=== PATIENT | female | born 1990 | race Caucasian/White ===

== ENCOUNTER → 2018-10-31 00:40 | Observation (INO) ==
[2018-10-30 22:55] LABS: Bilirubin,Urine Negative (Negative); Blood,Urine Negative (Negative); Clarity,Urine Cloudy (Clear); Color,Urine Yellow (Yellow); Glucose,Urine (UA) Normal (Normal); Ketones,Urine Negative (Negative); Leukocyte Esterase,Urine Trace (Negative); Nitrite,Urine Negative (Negative); Protein,Urine Negative (Neg-Trace); Specific Gravity,Urine 1.018 (1.010-1.025); Urobilinogen,Urine Normal (Normal)
[2018-10-30 22:56] LABS: Bacteria,Urine Few per hpf (None-Few); Hyaline Casts,Urine None Seen per lpf (None-Few); RBC,Urine 0-3 per hpf (0-3); Squamous Epithelial Cell,Urine Many per lpf (None-Few); WBC,Urine 0-3 per hpf (0-3)
[2018-10-30 23:06] LABS: Amphetamine Screen,Urine Negative ng/mL (Cutoff=1000); Barbiturate Screen,Urine Negative ng/mL (Cutoff=200); Benzodiazepines Screen,Urine Negative ng/mL (Cutoff=200); Cannabinoid Screen,Urine Negative ng/mL (Cutoff = 50); Cocaine Screen,Urine Negative ng/mL (Cutoff= 300); Opiate Screen,Urine Negative ng/mL (Cutoff=300); Phencyclidine Screen,Urine Negative ng/mL (Cutoff=25)
--- NOTE | 2018-10-31 00:33 | Discharge Summary ---
Date of Encounter: 10/31/18 Time of Encounter: 00:38 - Discharge Diagnosis (1) 28 weeks gestation of Priority: Primary Status: Acute Comments: Admit to observation for complaint of abdominal pain. (2) Abdominal pain affecting Priority: Secondary Status: Acute Comments: Continuous /uterine monitoring Rare uterine activity noted. - Discharge Medications Prescriptions: No Action One Tablet 1 mg PO DAILY Hydrocodone/Acetaminophen [[place] 5-325 Tablet] 1 each PO Q6H PRN 3 Days #12 tablet PRN Reason: Moderate Pain Vitamin B-6 Home Medications: One Tablet 1 mg PO DAILY 09/20/18 [History] Hydrocodone/Acetaminophen [[place] 5-325 Tablet] 1 each PO Q6H PRN 3 Days #12 tablet 10/16/18 [Rx] Vitamin B-6 10/30/18 [History] Allergies/Adverse Reactions: Allergy/AdvReac Type Severity Reaction Status Date / Time Cyclobenzaprine Allergy Redness of Verified 10/30/18 22:43 [From Flexeril] Skin metoclopramide [From Reglan] Allergy Seizure Verified 10/30/18 22:43 Data Procedures and tests throughout hospitalization: Laboratory Tests 10/30/18 10/30/18 22:45 22:45 Urine Color Yellow Urine Clarity Cloudy A Urine pH 8.0 Ur Specific [place] 1.018 Urine Protein Negative Urine Glucose (UA) Normal Urine Ketones Negative Urine Blood Negative Urine Nitrite Negative Urine Bilirubin Negative Urine Urobilinogen Normal Ur Leukocyte Esterase Trace H Urine Microscopic RBC 0-3 Urine Microscopic WBC 0-3 Ur Squamous Epith Cells Many H Urine Bacteria Few Hyaline Casts None Seen Ur Culture Indicated? YES A Urine Opiates Screen Negative Ur Buprenorphine Scrn Negative Ur Barbiturates Screen Negative Ur Phencyclidine Scrn Negative Ur Amphetamines Screen Negative U Benzodiazepines Scrn Negative Urine Cocaine Screen Negative U Marijuana (THC) Screen Negative Ur Drug Screen Interp See Below Labs on day of discharge: Labs from last 24 hours 10/30/18 10/30/18 22:45 22:45 Urine Color Yellow Urine Clarity Cloudy A Urine pH 8.0 Ur Specific [place] 1.018 Urine Protein Negative Urine Glucose (UA) Normal Urine Ketones Negative Urine Blood Negative Urine Nitrite Negative Urine Bilirubin Negative Urine Urobilinogen Normal Ur Leukocyte Esterase Trace H Urine Microscopic RBC 0-3 Urine Microscopic WBC 0-3 Ur Squamous Epith Cells Many H Urine Bacteria Few Hyaline Casts None Seen Ur Culture Indicated? YES A Urine Opiates Screen Negative Ur Buprenorphine Scrn Negative Ur Barbiturates Screen Negative Ur Phencyclidine Scrn Negative Ur Amphetamines Screen Negative U Benzodiazepines Scrn Negative Urine Cocaine Screen Negative U Marijuana (THC) Screen Negative Ur Drug Screen Interp See Below Preliminary micro results at discharge 10/30/18 22:45 Urine Culture - Preliminary Urine,Clean Catch Culture is incubating. Date of admission: 10/30/18 22:33 Discharging clinician: Hilaria Fraser Anticipated date of discharge: 10/31/18 - Patient Status Disposition: Home, Self-Care Condition: Good Functional capacity at discharge: independent ambulation Overall status at discharge: patient is progressing back to baseline - Discharge Instructions - Diet and Activity Activity: resume usual activities as tolerated Diet: regular diet Hospital Course [employer]PER[employer] SUPERINTENDENT Hospital course: Patient arrived with complaint of lower abdominal/ suprapubic pain today. She does report positive movement and denies vaginal bleeding and fluid leakage. FHR is appropriate for gestational age and toco monitor reveals scant uterine activity. UA is WNL with mild dehydration noted. Patient is given labor precautions and is to follow up with her OB care provider for routine visit. Time Attestation: Total time spent providing and/or coordinating discharge services: Time Spent: Less than 30 minutes Exam - Constitutional General appearance IM: A&O X 3, no acute distress, answers questions appropriately - Respiratory Respiratory exam: Present: CTAB - Cardiovascular Cardiovascular exam IM: Present: RRR, +S1, +S2 - GI/Abdominal GI/Abdominal exam IM: normal bowel sounds - Rectal Rectal exam: deferred - External exam: normal external exam - Extremities Exam Extremities exam IM: Present: full ROM, normal capillary refill, normal inspection. Absent: calf tenderness - Neurological Exam Neurological exam: alert, normal gait, oriented X3 - VTE Reasons for not Prescribing Prophylaxis: Treatment not Indicated - Low risk for VTE
== END | disposition home or self-care (01) ==
LOC: 1NENULAB
PROVIDERS: ADMIT Registered Nurse; ATTEND Registered Nurse

== ENCOUNTER 2018-11-21 17:03 | Observation (INO) ==
[2018-11-21 17:39] LABS: Bilirubin,Urine Negative (Negative); Blood,Urine Negative (Negative); Clarity,Urine Clear (Clear); Color,Urine Yellow (Yellow); Glucose,Urine (UA) Normal (Normal); Ketones,Urine Negative (Negative); Leukocyte Esterase,Urine Negative (Negative); Nitrite,Urine Negative (Negative); Protein,Urine Negative (Neg-Trace); Urobilinogen,Urine Normal (Normal)
[2018-11-21 17:49] LABS: Amphetamine Screen,Urine Negative ng/mL (Cutoff=1000); Barbiturate Screen,Urine Negative ng/mL (Cutoff=200); Benzodiazepines Screen,Urine Negative ng/mL (Cutoff=200); Cannabinoid Screen,Urine Negative ng/mL (Cutoff = 50); Cocaine Screen,Urine Negative ng/mL (Cutoff= 300); Opiate Screen,Urine Negative ng/mL (Cutoff=300); Phencyclidine Screen,Urine Negative ng/mL (Cutoff=25)
== END 2018-11-21 19:15 | disposition home or self-care (01) ==
LOC: 1NENULAB
PROVIDERS: ADMIT Advanced Practice Midwife; ATTEND Advanced Practice Midwife

== ENCOUNTER → 2018-12-19 16:00 | Observation (INO) ==
[2018-12-19 14:12] LABS: Bilirubin,Urine Small (Negative); Blood,Urine Negative (Negative); Clarity,Urine Clear (Clear); Color,Urine Dark Yellow (Yellow); Glucose,Urine (UA) Normal (Normal); Ketones,Urine 40 mg/dL (Negative); Leukocyte Esterase,Urine Negative (Negative); Nitrite,Urine Negative (Negative); PH,Urine 6.5 pH Units (5.0-8.0); Protein,Urine Trace mg/dL (Neg-Trace); Specific Gravity,Urine 1.023 (1.010-1.025); Urobilinogen,Urine Normal (Normal)
[2018-12-19 14:19] LABS: Amphetamine Screen,Urine Negative ng/mL (Cutoff=1000); Barbiturate Screen,Urine Negative ng/mL (Cutoff=200); Benzodiazepines Screen,Urine Negative ng/mL (Cutoff=200); Cannabinoid Screen,Urine Negative ng/mL (Cutoff = 50); Cocaine Screen,Urine Negative ng/mL (Cutoff= 300); Opiate Screen,Urine Negative ng/mL (Cutoff=300); Phencyclidine Screen,Urine Negative ng/mL (Cutoff=25)
--- NOTE | 2018-12-19 16:21 | OB/GYN Progress Note ---
Date of Encounter: 12/19/18 Time of Encounter: 16:21 - Assessment and Plan (1) 35 weeks gestation of Current Visit: Yes Status: Acute (2) Uterine contractions during Current Visit: Yes Status: Acute Cervix closed, no change on serial cervical exams. 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 Discharged home with labor and when to return to triage precautions. Patient verbalizes arises understanding and in agreement with plan Subjective - Subjective Interval history: 35+3 weeks gestation presents to triage with complaints of contractions. Patient to she is been having contractions every 15 minutes all day, here for evaluation. Reports good movement, denies vaginal bleeding or leaking of fluid. Antepartum ROS: movement normal, contractions, no loss of fluid, no vaginal bleeding Objective - Exam FHR: auscultation normal FHR comments: Baseline 135 Abdomen: Present: soft, gravid Cervical dilation: Closed/thick/high/per RN - Labs Labs: Abnormal lab results Urine Ketones 40 mg/dL (Negative) H 12/19/18 13:50 Urine Bilirubin Small (Negative) H 12/19/18 13:50
== END | disposition home or self-care (01) ==
LOC: 1NENULAB
PROVIDERS: ADMIT Advanced Practice Midwife; ATTEND Advanced Practice Midwife

== ENCOUNTER → 2018-12-23 12:18 | Observation (INO) ==
[2018-12-23 11:04] LABS: Bilirubin,Urine Negative (Negative); Blood,Urine Negative (Negative); Clarity,Urine Cloudy (Clear); Color,Urine Yellow (Yellow); Glucose,Urine (UA) Normal (Normal); Ketones,Urine Negative (Negative); Leukocyte Esterase,Urine Negative (Negative); Nitrite,Urine Negative (Negative); PH,Urine 7.5 pH Units (5.0-8.0); Protein,Urine Negative (Neg-Trace); Specific Gravity,Urine 1.016 (1.010-1.025); Urobilinogen,Urine Normal (Normal)
[2018-12-23 11:08] LABS: Bacteria,Urine Few per hpf (None-Few); Hyaline Casts,Urine None Seen per lpf (None-Few); RBC,Urine 0-3 per hpf (0-3); Squamous Epithelial Cell,Urine Many per lpf (None-Few); WBC,Urine 0-3 per hpf (0-3)
[2018-12-23 11:16] LABS: Amphetamine Screen,Urine Negative ng/mL (Cutoff=1000); Barbiturate Screen,Urine Negative ng/mL (Cutoff=200); Benzodiazepines Screen,Urine Negative ng/mL (Cutoff=200); Cannabinoid Screen,Urine Negative ng/mL (Cutoff = 50); Cocaine Screen,Urine Negative ng/mL (Cutoff= 300); Opiate Screen,Urine Negative ng/mL (Cutoff=300); Phencyclidine Screen,Urine Negative ng/mL (Cutoff=25)
--- NOTE | 2019-01-02 09:57 | OB/GYN Progress Note ---
Date of Encounter: 12/23/18 Time of Encounter: 10:00 - Assessment and Plan (1) 36 weeks gestation of Status: Acute Follow up as scheduled Discharge home (2) uterine contractions in third trimester, antepartum Status: Acute Monitored with no cervical change UA negative Fern - Subjective - Subjective Interval history: Pt presents with c/o uterine cramping and concern for LOF. Antepartum ROS: new complaints, loss of fluid, contractions Objective - Exam FHR: category 1 Auscultation: bilateral: normal Abdomen: Present: normal appearance, soft, gravid Uterus: Present: normal, firm Cervical dilation: 0 Cervix effacement: 50 station: -3 - Labs Labs: Abnormal lab results Urine Clarity Cloudy (Clear) A 12/23/18 09:35 Ur Squamous Epith Cells Many per lpf (None-Few) H 12/23/18 09:35 Ur Culture Indicated? YES (NO) A 12/23/18 09:35
== END | disposition home or self-care (01) ==
LOC: 1NENULAB
PROVIDERS: ADMIT Advanced Practice Midwife; ATTEND Advanced Practice Midwife

== ENCOUNTER → 2018-12-27 04:15 | Observation (INO) ==
--- NOTE | 2018-12-27 03:34 | OB/GYN Progress Note ---
Date of Encounter: 12/27/18 Time of Encounter: 03:30 - Assessment and Plan (1) 36 weeks gestation of Current Visit: Yes Status: Acute NST reactive Not rupture Serial vaginal exams Discharge home with PTL precautions Follow up in office with routine care and PRN POC per consult with Dr Bauer (2) NST (non-stress test) reactive Current Visit: Yes Status: Acute (3) uterine contractions in third trimester, antepartum Current Visit: Yes Status: Acute Subjective - Subjective Principal diagnosis: contractions and LOF Interval history: Ms Delarosa is a at 36 weeks and 2 days that presents to triage with c/o contractions that have lasted for days and progressively worsened over the evening beginning at 2200. She states she has leaking of fluid that began after intercourse this evening. She states positive movement. She denies headaches, vision changes, epigastric pain, and vaginal bleeding. She is seen by Dr Bauer for her care. She has had an uncomplicated course. Antepartum ROS: loss of fluid, movement normal, contractions Objective - Vital Signs Vital Signs: Intake and Output 12/26/18 12/26/18 12/27/18 15:59 23:59 07:59 Other: Weight 81.6 kg Patient Weight 12/27/18 23:59 Weight 81.6 kg - Exam FHR: auscultation normal, category 1 FHR comments: Baseline 140 moderate variability with >15 x 15 accels and no decels. Contractions every 2-5 minutes palpate mild to moderate. Patient stops to breath through them Abdomen: Present: normal appearance, soft, gravid Uterus: Present: normal. Absent: firm, tenderness Cervical dilation: 1 Cervix effacement: thick station: high Comments: SSE - pooling negative, fern negative (spematozoan seen), nitrazine equivocal
== END | disposition home or self-care (01) ==
LOC: 1NENULAB
PROVIDERS: ADMIT Obstetrics & Gynecology; ATTEND Obstetrics & Gynecology

== ENCOUNTER → 2019-01-05 13:55 | Observation (INO) ==
[~2019-01-05 13:55] MED LIST: Epidural Premix (fent/bupiv) 110 ML EP SCH
== END | disposition home or self-care (01) ==
LOC: 1NENULAB
PROVIDERS: ADMIT Registered Nurse; ATTEND Registered Nurse

== ENCOUNTER 2019-01-05 20:25 | Inpatient (IN) ==
[~2019-01-05 20:25] MED LIST changes: +*HR* Nalbuphine 10 MG/ML AMPUL IVP PRN; -Epidural Premix (fent/bupiv) 110 ML EP SCH; +Famotidine 20 MG/2 ML VIAL IVP PRN; +Lidocaine 1% 20 ML MDV INFILT PRN; +Naloxone 0.4 MG/ML INJ IVP PRN
[2019-01-05] MEDS ORDERED: Ringers Solution, Lactated 1,000 ML IVC SCH (20:30)
--- NOTE | 2019-01-05 20:32 | OB/GYN History & Physical ---
Date of Encounter: 01/05/19 Time of Encounter: 20:28 Assessment and Plan (1) SROM (spontaneous rupture of membranes) Current visit: Yes Status: Acute Speculum exam shows gross rupture membranes Admit to labor and delivery GBS negative Nubain and epidural as desired We will expedite epidural due to pain If no cervical change 2 hours after epidural will start Pitocin per policy. Anticipate . (2) 37 weeks gestation of Current visit: Yes Status: Acute History of Present Illness Chief complaint: SROM HPI: Ms. Delarosa is a 28 year old female 37+6 weeks gestation presents to triage with contractions and rupture membranes. Patient was and triage for evaluation for contractions and rupture membranes earlier this evening and was sent home. Patient now grossly ruptured, and painfully roberto. Ports good movement, denies vaginal bleeding. care with Dr. Galarza, complicated by fracture of the tailbone and possible left-sided coccyx. Patient was offered a delivery over vaginal per Dr. Galarza. Patient chose to proceed with vaginal delivery at this time. Labs: O+, rubella and varicella immune, GBS negative, all other serologies negative. Past Med Surg Social Fam HX - Past Medical History Medical history: asthma Additional medical history: brain aneurysm diagnosed 3-4 years ago with no sx. 2 uncomplicated vaginal deliveries Psychiatric history: anxiety, depression - Past Surgical History Surgical History: appendectomy Additional surgical history: sinus sx - Social History Smoking Status: Current every day smoker Smokeless Tobacco Status: No Alcohol use: none Drug use: none - Family History Mother Family Member Ethnicity: Non- Living Status: Still Living Hx Family Cardiac Disorders: Yes (HTN) Hx Family Respiratory Disorders: No Hx Family Cancer: No Hx Family GI Disorders: No Hx Family Endocrine Disorder: No Hx Family Neuromuscular Disorders: No Hx Family Neurologic Disorders: Yes (seizures) Hx Family HEENT Disorders: No Hx Family Autoimmune Disorders: No Obstetrical History - Pregnancies : 3 Para: 2 Term: 2 : 0 Ab's: 0 Livin Medications and Allergies One Tablet 1 mg PO DAILY 09/20/18 [History] Vitamin B-6 1 tab PO DAILY 10/30/18 [History] Promethazine [Phenergan] 25 mg PO Q6HR PRN 12/19/18 [History] Allergy/AdvReac Type Severity Reaction Status Date / Time Cyclobenzaprine Allergy Hives Verified 01/05/19 10:19 [From Flexeril] metoclopramide [From Reglan] Allergy Seizure Verified 11/21/18 17:21 Exam - Constitutional Constitutional: well developed, well nourished, no acute distress, average body habitus - Neck Neck exam: full ROM - Lungs Respiratory exam: wheezes (scattered wheezes, smoker ) - Cardiovascular Cardiovascular exam: RRR - Abdomen Abdomen: Present: gravid, non tender - Extremities Extremities exam: normal capillary refill, normal inspection Deep Tendon Reflex Grade: 2+ Normal - Cervix Dilation: 2 (Per RN) Results All other labs normal. - VTE Reasons for not Prescribing Prophylaxis: Treatment not Indicated - Low risk for VTE
[2019-01-05] MEDS ORDERED: Epidural Premix (fent/bupiv) 110 ML EP ONE (20:40)
[2019-01-05] MEDS ORDERED: Oxytocin 20 units/ LR 1000 mL 20 UNIT/1,000 ML BAG IVC SCH (20:45)
[2019-01-05 21:29] LABS: Basophils # 0.1 K/mcL (0.0-0.2); Basophils % 0.4 %; Eosinophils # 0.2 K/mcL (0.0-0.6); Eosinophils % 1.2 %; Hematocrit 37.6 % (35.3-44.9); Hemoglobin 13.2 g/dL (11.5-15.4); Immature Granulocytes % 0.8 % (0-4); Lymphocytes # 5.1 K/mcL (0.6-4.6); Lymphocytes % 26.1 %; Mean Corpuscular HGB Conc 35.1 g/dL (31.6-35.5); Mean Corpuscular Hemoglobin 31.3 pg (28.0-33.3); Mean Corpuscular Volume 89.1 fL (83.0-100.0); Mean Platelet Volume 12.2 fL (9.4-12.4); Monocytes # 1.6 K/mcL (0.0-1.3); Monocytes % 8.2 %; Neutrophils # 12.3 K/mcL (1.6-8.9); Platelet Count 270 K/mcL (140-400); Red Blood Count 4.22 M/mcL (3.82-4.97); Red Cell Distribution Width 13.1 % (11.5-14.5); Segmented Neutrophils % 63.3 %; White Blood Count 19.5 K/mcL (4.3-11.1)
--- NOTE | 2019-01-05 21:30 | Anesthesia Procedures ---
Date of Encounter: 01/05/19 Time of Encounter: 20:44 Procedures: Anesthesia - Epidural/Spinal Patient ID/Chart reviewed: Yes Patient examined: Yes OB Eval: Contractions: Non-stressed pattern Consent Obtained: Yes Supplemental Oxygen: None/Room Air Site Prep: Aseptic Technique, Sterile prep and drape, 0.5% Chlorhexidine/Alcohol Patient position: upright Local Anesthetic: Lidocaine 1% Amount of Local Anesthetic used: 2 Touhy Needle Gauge: 18 Touhy Needle Depth (cm): 5 Catheter Depth at Skin (cm): 10 Test Dose (1.5% Lido + Epi): Volume given (mls): 4 Test Dose Result: Negative Loading Dose: Other: 10ml from solution Loading Dose Administered: Thru Catheter Infusion Med: 0.125% Bupivacaine w/ 2 mcg/ml Fentanyl Infusion Rate (mls/hr): [address]: Tegaderm, Tape Interspace Used: L3-L4 Loss of Resistance (CRISTOBAL): Yes (saline) Blood: No CSF: Yes (25g purposeful) Paresthesia: No Procedure: vss though out, FHR per team
--- NOTE | 2019-01-05 21:33 | Anesthesia Evaluation PreOp ---
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, no treatment,) Anesthesia History: No Prior Anesthetic Complications, Past Anesthesia Alcohol Use: none Drug use: none Medications and Allergies One Tablet 1 mg PO DAILY 09/20/18 [History] Vitamin B-6 1 tab PO DAILY 10/30/18 [History] Promethazine [Phenergan] 25 mg PO Q6HR PRN 12/19/18 [History] Allergy/AdvReac Type Severity Reaction Status Date / Time Cyclobenzaprine Allergy Hives Verified 01/05/19 10:19 [From Flexeril] metoclopramide [From Reglan] Allergy Seizure Verified 11/21/18 17:21 Anesthesia Exam - HEENT Pupil (Motor): Pupils equal Mallampati: II Teeth: Normal (tongue ring removed) Oral Opening: Greater than 3 - PLANT SCIENCE PROFESSOR LOC: Oriented PLANT SCIENCE PROFESSOR Motor: Normal RUE, Normal LUE, Normal RLE, Normal LLE, Normal Face PLANT SCIENCE PROFESSOR Sensory: Normal: RUE, LUE, RLE, LLE, Face - Cardiac Rhythm: Regular Murmur: None - Pulmonary Breath Sounds: bilateral Clear Respiratory Effort: Symmetrical Anesthesia Assess/Plan ASA Score: 2 Level of consciousness: Cooperative, Anxious, Restless Anesthetic Plan: General, Spinal, Epidural Monitoring Plan: Standard Monitors Recovery Plan: PACU
--- NOTE | 2019-01-05 22:30 | OB/GYN Procedure Note ---
Delivery - Delivery Date: 01/05/19 Provider: Farhana Olson Intrapartum events: none Delivery induction: none Delivery monitor: external FHT, external uterine Anesthesia: epidural Quantitated Blood Loss: 50 - Infant (s) Infant A Delivery Date: 01/05/19 Infant Delivery Time: 22:08 Presentation: vertex Position: OA Route of delivery: Gender: Female Viability: Viable Pounds: 6 Ounces: 2 Weight Gram: 2800 kg at 1 minute: 8 at 5 mins: 9 Shoulder Dystocia: not encountered Specimens collected: cord blood Placenta: spontaneous - Repair Episiotomy: none Laceration Description: Labial - Complications Delivery complications: none Delivery comments: Spontaneous rupture membranes with spontaneous labor. Progressed to complete, maternal bearing down efforts to of liveborn female. Vertex delivered OA, shoulders and body easily followed. No nuchal cord or shoulder dystocia encountered. Vigorous placed on maternal abdomen for drying and stimulation. Apgars 8/9. Placenta delivered spontaneously (Brown) complete and intact upon inspection. Pitocin started per policy and fundus massaged until firm. Right labial laceration with small hematoma noted, hemostatic and left unrepaired. EBL 50 - Disposition Mom disposition: stable in LDR [place] disposition: stable in LDR
[2019-01-05] MEDS ORDERED: Epidural Premix (fent/bupiv) 110 ML EP SCH (23:30)
[2019-01-06] MEDS ORDERED: Benzocaine/Menthol 56 GM AEROSOL SPRAY TP PRN (00:29)
[2019-01-06] MEDS ORDERED: Oxytocin 20 units/ LR 1000 mL 20 UNIT/1,000 ML BAG IVC SCH (00:29)
[2019-01-06] MEDS ORDERED: Acetaminophen 325 MG TABLET PO PRN (00:29)
[2019-01-06] MEDS ORDERED: Lanolin 7 G OINT...G. TP PRN (00:29)
[2019-01-06] MEDS: Ibuprofen 600 MG TABLET PO PRN ×3 (07:47→20:59)
--- NOTE | 2019-01-06 08:26 | OB/GYN Progress Note ---
Date of Encounter: 01/06/19 Time of Encounter: 08:23 - Assessment and Plan (1) Vaginal delivery Current Visit: Yes Status: Acute Stable PPD#1 Continue current management Anticipate discharge tomorrow Subjective - Subjective Interval history: Stable, bleeding minimal, pain well managed, Patient reports: appetite normal, voiding normally, pain well controlled, ambulating normally : doing well, nursing well Objective - Latest Vital Signs Latest vital signs: Vital Signs Temp Pulse Resp BP Pulse Ox 01/06/19 07:35 98.0 F 57 15 131/87 98 01/06/19 03:00 98.4 F 71 20 102/58 98 01/06/19 02:00 98.6 F 67 20 113/73 99 01/06/19 00:50 98 F 67 16 108/67 99 01/05/19 20:24 97.4 F L 103 15 130/84 Intake and Output 01/05/19 01/06/19 01/06/19 23:59 07:59 15:59 Intake Total 300 / 300 Output Total 150 / 150 400 / 400 Balance -150 / -150 -100 / -100 Intake: Oral 300 / 300 Output: Urine 400 / 400 Estimated Blood Loss 50 / 50 Catheter 100 / 100 Other: Weight 79.696 kg - Exam Lungs: bilateral: normal Chest: Normal S1, Normal S2 Abdomen: Present: soft Uterus: Present: firm Uterus Position: At Umbilicus - Labs Labs: Laboratory Results - last 24 hr 01/05/19 01/06/19 20:30 06:50 WBC 19.5 H RBC 4.22 Hgb 13.2 Hct 37.6 MCV 89.1 MCH 31.3 MCHC 35.1 RDW 13.1 Plt Count 270 MPV 12.2 Immature Gran % 0.8 Seg Neutrophils % 63.3 Lymphocytes % 26.1 Monocytes % 8.2 Eosinophils % 1.2 Basophils % 0.4 Neutrophils # 12.3 H Lymphocytes # 5.1 H Monocytes # 1.6 H Eosinophils # 0.2 Basophils # 0.1 Specimen Rejected Clotted
[2019-01-06] MEDS ORDERED: Prenatal Vit/FA 1 EACH TABLET PO SCH (09:00)
[2019-01-06] MEDS ORDERED: Lidocaine/EPI 1:100k 1% 30 ML VIAL INFILT ONE (09:04)
[2019-01-06] MEDS ORDERED: Etonogestrel 68 MG IMPLANT IL ONE ×2 (09:04→16:57)
[2019-01-06 10:52] LABS: Basophils # 0.1 K/mcL (0.0-0.2); Basophils % 0.3 %; Eosinophils # 0.1 K/mcL (0.0-0.6); Eosinophils % 0.5 %; Hematocrit 34.3 % (35.3-44.9); Hemoglobin 11.9 g/dL (11.5-15.4); Immature Granulocytes % 0.8 % (0-4); Lymphocytes # 3.1 K/mcL (0.6-4.6); Lymphocytes % 16.2 %; Mean Corpuscular HGB Conc 34.7 g/dL (31.6-35.5); Mean Corpuscular Hemoglobin 31.2 pg (28.0-33.3); Mean Platelet Volume 11.7 fL (9.4-12.4); Monocytes # 1.5 K/mcL (0.0-1.3); Monocytes % 7.8 %; Neutrophils # 14.2 K/mcL (1.6-8.9); Platelet Count 215 K/mcL (140-400); Red Blood Count 3.81 M/mcL (3.82-4.97); Segmented Neutrophils % 74.4 %; White Blood Count 19.1 K/mcL (4.3-11.1)
[2019-01-06] MEDS ORDERED: Lidocaine -MPF 2% 5 ML VIAL INFILT ONE (16:59)
--- NOTE | 2019-01-06 17:15 | Discharge Summary ---
Date of Encounter: 01/06/19 Time of Encounter: 17:12 - Discharge Diagnosis (1) Vaginal delivery Priority: Primary Status: Acute Comments: S/P Vaginal delivery day 1 pain is well controlled lochia is light and without clots VSS voiding without difficulty passing flatus breast feeding discharge home today poc per consult with dr pacheco - Discharge Medications Prescriptions: New Breast Pump [BREAST PUMP] 1 each .ROUTE AD #1 each Docusate [Colace] 100 mg PO BID #30 capsule Benzocaine/Menthol [place] [Dermoplast [place]] 1 appl TP QID PRN aerosol PRN Reason: See Comments Lanolin [Lansinoh] 1 appl TP QID PRN oint...g. PRN Reason: Ibuprofen [Motrin] 600 mg PO Q6HR PRN #30 tablet PRN Reason: Cramping Acetaminophen [Tylenol] 650 mg PO Q6HR PRN tablet PRN Reason: Mild Pain Continued One Tablet 1 mg PO DAILY Vitamin B-6 1 tab PO DAILY Promethazine [Phenergan] 25 mg PO Q6HR PRN PRN Reason: Nausea Home Medications: One Tablet 1 mg PO DAILY 09/20/18 [History] Vitamin B-6 1 tab PO DAILY 10/30/18 [History] Promethazine [Phenergan] 25 mg PO Q6HR PRN 12/19/18 [History] Acetaminophen [Tylenol] 650 mg PO Q6HR PRN tablet 01/06/19 [Rx] Benzocaine/Menthol [place] [Dermoplast [place]] 1 appl TP QID PRN aerosol 01/06/19 [Rx] Breast Pump [BREAST PUMP] 1 each .ROUTE AD #1 each 01/06/19 [Rx] Docusate [Colace] 100 mg PO BID #30 capsule 01/06/19 [Rx] Ibuprofen [Motrin] 600 mg PO Q6HR PRN #30 tablet 01/06/19 [Rx] Lanolin [Lansinoh] 1 appl TP QID PRN oint...g. 01/06/19 [Rx] Allergies/Adverse Reactions: Allergy/AdvReac Type Severity Reaction Status Date / Time Cyclobenzaprine Allergy Hives Verified 01/05/19 10:19 [From Flexeril] metoclopramide [From Reglan] Allergy Seizure Verified 11/21/18 17:21 Data Procedures and tests throughout hospitalization: Laboratory Tests 01/05/19 01/06/19 01/06/19 20:30 06:50 10:28 WBC 19.5 H 19.1 H RBC 4.22 3.81 L Hgb 13.2 11.9 Hct 37.6 34.3 L MCV 89.1 90.0 MCH 31.3 31.2 MCHC 35.1 34.7 RDW 13.1 13.0 Plt Count 270 215 MPV 12.2 11.7 Immature Gran % 0.8 0.8 Seg Neutrophils % 63.3 74.4 Lymphocytes % 26.1 16.2 Monocytes % 8.2 7.8 Eosinophils % 1.2 0.5 Basophils % 0.4 0.3 Neutrophils # 12.3 H 14.2 H Lymphocytes # 5.1 H 3.1 Monocytes # 1.6 H 1.5 H Eosinophils # 0.2 0.1 Basophils # 0.1 0.1 Specimen Rejected Clotted Labs on day of discharge: Labs from last 24 hours 01/06/19 01/06/19 01/05/19 10:28 06:50 20:30 WBC 19.1 H 19.5 H RBC 3.81 L 4.22 Hgb 11.9 13.2 Hct 34.3 L 37.6 MCV 90.0 89.1 MCH 31.2 31.3 MCHC 34.7 35.1 RDW 13.0 13.1 Plt Count 215 270 MPV 11.7 12.2 Immature Gran % 0.8 0.8 Seg Neutrophils % 74.4 63.3 Lymphocytes % 16.2 26.1 Monocytes % 7.8 8.2 Eosinophils % 0.5 1.2 Basophils % 0.3 0.4 Neutrophils # 14.2 H 12.3 H Lymphocytes # 3.1 5.1 H Monocytes # 1.5 H 1.6 H Eosinophils # 0.1 0.2 Basophils # 0.1 0.1 Specimen Rejected Clotted Date of admission: 01/05/19 20:25 Primary care physician: PCP NONE Consults: 01/06/19 00:29 Consult to Plant Changer [CONS] Routine Comment: Vaginal delivery, consult needed Discharging clinician: Hilaria Jane Anticipated date of discharge: 01/06/19 - Patient Status Disposition: Home, Self-Care Condition: Good Functional capacity at discharge: independent ambulation Overall status at discharge: patient is progressing back to baseline - Discharge Instructions Follow Up With: NONE,PCP [Primary Care Provider] - Farhana Olson CNM [Advanced Practice Nurse] - - Diet and Activity Activity: increase activity as tolerated Diet: regular diet Hospital Course Reason for admission: IUP at term Delivery: Episiotomy: none Laceration: other Other procedures: none complications: none Discharge diagnosis: IUP at term delivered Time Attestation: Total time spent providing and/or coordinating discharge services: Time Spent: Less than 30 minutes Exam - Constitutional Vitals: Temp Pulse Resp BP Pulse Ox 97.8 F 58 16 113/74 97 01/06/19 16:45 01/06/19 16:45 01/06/19 16:45 01/06/19 16:45 01/06/19 16:45 General appearance IM: cooperative, A&O X 3, pleasant, no acute distress - Respiratory Respiratory exam: Present: CTAB. Absent: respiratory distress - Cardiovascular Cardiovascular exam IM: Present: RRR, +S1, +S2. Absent: irregular rhythm - GI/Abdominal GI/Abdominal exam IM: normal bowel sounds - Rectal Rectal exam: deferred - Uterine Tone: Firm Uterus Position: 2 Fingers Below Umbilicus, Midline - Extremities Exam Extremities exam IM: Present: normal capillary refill, normal inspection, radial pulses palpable and symmetrical. Absent: calf tenderness - Neurological Exam Neurological exam: alert, oriented X3
--- NOTE | 2019-01-06 17:27 | Event Note ---
Date of Encounter: 01/06/19 Time of Encounter: 17:22 Informed consent was obtained and a time out performed. Patient was placed in the supine position with the left arm in the appropriate position. Betadine was used to prep the arm in a sterile fashion. Epinephrine was used to anesthetize. The implant was inserted in the subcutaneous tissue to the appropriate length then the Nexplanon was released. Both myself and the patient can palpate the hilario without difficulty. Steri-strips and a pressure dressing was applied. Patient tolerated the procedure well. She is to be discharged this evening per patient request.
[2019-01-06 21:29] VITALS: BP 123/81
== END 2019-01-06 23:10 | disposition home or self-care (01) | DRG 560 ==
LOC: 1NENULAB → 1NENUOBS 01-06 00:28
PROVIDERS: ADMIT Advanced Practice Midwife; ATTEND Advanced Practice Midwife